=== PATIENT | female | born 1980 | race Caucasian/White ===

== ENCOUNTER 2018-02-01 14:51 | Emergency (ER) | payer OTHER ==
[2018-02-01 15:14] VITALS: O2SAT 98
--- NOTE | 2018-02-01 15:40 | ERPHSYRPT ---
- History of Present Illness Time Seen by Provider: 02/01/18 15:20 Source: patient Exam Limitations: no limitations Patient Subjective Stated Complaint: pain in right lower back that radiates down the right leg, occasional numbness in both arms Triage Nursing Assessment: Pt c/o of pain in the right lower back that radiates to her hip and all the way down the right leg, states that when she walks it feels as though something gets pinched and then when she advances her leg it gets released, hurts while laying down, pulses good, vitals wnl except BP 142/93 , reports arms have been going numb for about 4-5 months, no difficulties with strength, doesn't appear to be in any distress Physician History: 37 y/o obese white female presents with 1.5 day h/o of right side back pain with radiation down right leg. no injury. pt also c/o bilat upper ext numbness for months. pt here for xrays of lower back. she notices a "bone" present that wasnt there before. Timing/Duration: day(s) (1.5) Method of Injury: other (no injury) Quality: radiating, sharp Back Pain Location: lumbar spine Back Pain Radiation: lower legs Severity of Pain-Max: mild Severity of Pain-Current: mild Modifying Factors: Improves With: movement (worsens) Associated Symptoms: lower back pain, No fever, No chills, No sweating, No urinary incontinence, No loss of bowel control, No numbness in legs/feet, No sensory/motor loss, No tingling in legs/feet Previous symptoms: no prior history Allergies/Adverse Reactions: amoxicillin Allergy (Verified 02/01/18 15:14) cephalexin Allergy (Verified 02/01/18 15:14) Penicillins Allergy (Verified 02/01/18 15:14) Home Medications: Linaclotide [Linzess] 1 cap PO DAILY 02/01/18 [History] - Review of Systems Constitutional: No Symptoms Eyes: No Symptoms Ears, Nose, & Throat: No Symptoms Respiratory: No Symptoms Cardiac: No Symptoms Abdominal/Gastrointestinal: No Symptoms Genitourinary Symptoms: No Symptoms Musculoskeletal: Back Pain, No Deformity, No Fall, No Injury Skin: No Symptoms Neurological: No Symptoms Psychological: No Symptoms Endocrine: No Symptoms Hematologic/Lymphatic: No Symptoms Immunological/Allergic: No Symptoms All Other Systems: Reviewed and Negative - Past Medical History Pertinent Past Medical History: Yes Neurological History: Migraines ENT History: No Pertinent History Cardiac History: No Pertinent History Respiratory History: No Pertinent History Endocrine Medical History: No Pertinent History Musculoskeletal History: No Pertinent History GI Medical History: No Pertinent History, Diverticulosis History: No Pertinent History Psycho-Social History: Depression Female Reproductive Disorders: No Pertinent History Other Medical History: 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, gestational diabetes - Past Surgical History Past Surgical History: Yes Neuro Surgical History: No Pertinent History Cardiac: No Pertinent History Respiratory: No Pertinent History Gastrointestinal: No Pertinent History Genitourinary: No Pertinent History Musculoskeletal: No Pertinent History Female Surgical History: Section, Tubal Ligation - Social History Smoking Status: Current every day smoker How long have you smoked: 24 years Exposure to second hand smoke: No Drug Use: none Patient Lives Alone: No - Female History Hx Now: No (tubal) - Nursing Vital Signs Nursing Vital Signs: Initial Vital Signs Temperature 97.5 F 02/01/18 15:01 Pulse Rate 100 H 02/01/18 15:01 Blood Pressure 142/93 02/01/18 15:01 O2 Sat by Pulse Oximetry 98 02/01/18 15:01 Pain Scale Pain Intensity 5 - Physical Exam General Appearance: no apparent distress, alert, anxiety Eye Exam: PERRL/EOMI Ears, Nose, Throat Exam: normal ENT inspection, moist mucous membranes Neck Exam: normal inspection, non-tender, supple, full range of motion Respiratory Exam: normal breath sounds, lungs clear, airway intact, No chest tenderness, No respiratory distress, No accessory muscle use, No rhonchi, No wheezing, No stridor Cardiovascular Exam: regular rate/rhythm, normal heart sounds Gastrointestinal Exam: soft, normal bowel sounds, No tenderness, No guarding, No rebound Pelvic Exam: not done Rectal Exam: not done Back Exam: normal inspection, normal range of motion, muscle spasm, No CVA tenderness Extremity Exam: normal inspection, normal range of motion, pelvis stable Neurologic Exam: alert, oriented x 3, cooperative, doctor of pharmacy II-XII nml as tested Skin Exam: normal color, warm, dry Lymphatic Exam: No adenopathy SpO2 Interpretation: normal SpO2: 98 Oxygen Delivery: Room Air - Course Nursing assessment & vital signs reviewed: Yes Ordered Tests: Active Orders 24 hr Category Date Time Status LUMBAR LIMITED (2 OR 3 VIEWS) Stat Exams 02/01/18 15:33 Taken PELVIS (1 OR 2 VIEWS) Stat Exams 02/01/18 15:34 Taken - Progress Progress: unchanged Progress Note: 02/01/18 16:09 xrays of pelvis and lumbar spine-no acute processes Counseled pt/family regarding: diagnosis, need for follow-up, rad results - Departure Time of Disposition: 16:10 Departure Disposition: Home Clinical Impression: Back pain, Sciatica Condition: Stable Critical Care Time: No Referrals: [facility] [Primary Care Provider] - Additional Instructions: follow up with primary doctor for further management. take medications as prescribed Prescriptions: Carisoprodol 350 mg [Soma 350 mg] 350 mg PO Q8H PRN PRN #10 tablet PRN Reason: Muscle Spasms Prednisone 10 mg [Deltasone 10 mg] 10 mg PO TID #12 tablet
--- NOTE | 2018-02-01 16:21 | XRAY ---
Indication: Low back pain. Comparison: None 3 views of the lumbar spine demonstrates 5 lumbar vertebral segments in normal alignment with minimal L1 anterior wedging either developmental versus old injury. Minimal L1-L2 anterior endplate spurring. Remaining vertebral body heights and disc spaces maintained. No acute fracture, subluxation, or soft tissue abnormalities. Impression: Nonacute lumbar spine with chronic features.
--- NOTE | 2018-02-01 16:21 | XRAY ---
Indication: Low back/pelvic pain. No known injury. Comparison: None Single AP pelvis demonstrates tiny foreign metallic wire projecting over the right iliac crest. No other bony, articular, or soft tissue abnormalities.
[2018-02-01 16:29] VITALS: BP 144/88; PULSE 77
== END 2018-02-01 16:28 | disposition home or self-care (01) ==
LOC: ED 14:51
DX: M54.9 Dorsalgia, unspecified (principal); M54.30 Sciatica, unspecified side
CPT/HCPCS: 72100; 72170; 99283